=== PATIENT | male | born 1950 | race African-American/Black ===

== ENCOUNTER → 2017-02-27 | Outpatient (CLI) | payer OTHER ==
--- NOTE | ~2017-02-27 | 2DMMODE ---
[facility] [address] [place] [address] 2 D/M-MODE ECHOCARDIOGRAM Name: ESSIE DOWD Room #: REG [facility]#: [id number] Admission: 02/27/17 Attend Phys: Jaycob Dietrich Discharge: Date of : 50 Date of Service: 02/27/17 1518 Report #: [id number] THIS REPORT FOR: //name// APPROVED REPORT Study performed: 02/27/2017 13:57:07 EXAM: Comprehensive 2D, Doppler, and color-flow Echocardiogram Patient Location: Out-Patient Status: routine BSA: 98.87 HR: 61 bpm BP: 147/92 mmHg Other Information Study Quality: Good Indications Hypertension/HDD 2D Dimensions RVDd: 31.23 mm LVEF(%): 72.36 (>50%) IVSd: 12.59 (7-11mm) LVOT Diam: 19.51 (18-24mm) LVDd: 46.58 mm PWd: 11.04 (7-11mm) Ascending Ao: 33.02 (22-36mm) LVDs: 27.28 (25-40mm) Aortic Root: 33.08 mm IVC: 2.40 mm Ferrer's LVEF: 72.36 % Volumes Left Atrial Volume (Systole) Single Plane 4CH: 48.35 mL Single Plane 2CH: 43.16 mL LA ESV Index: 51.00 mL/m2 Aortic Valve AoV Peak Dameon.: 1.19 m/s AO Peak Gr.: 5.65 mmHg LVOT Max P.94 mmHg LVOT Max V: 0.86 m/s NELLIE Vmax: 2.16 cm2 Mitral Valve E/A Ratio: 0.9 MV Decel. Time: 242.96 ms MV E Max Dameon.: 0.77 m/s [facility] [email or web address] [address] 2 D/M-MODE ECHOCARDIOGRAM Name: ESSIE DOWD [facility]: [facility] [id number] Admission: 02/27/17 Attend Phys: Jaycob Dietrich Discharge: Date of : 50 Date of Service: 02/27/17 1518 Report #: [id number] MV A Dameon.: 0.85 m/s MV PHT: 70.46 ms IVRT: 92.27 ms Pulmonary Valve PV Peak Dameon.: 0.88 m/s PV Peak Gr.: 3.09 mmHg Pulmonary Vein P Vein S: 0.49 m/s P Vein A: 0.27 m/s P Vein D: 0.42 m/s P Vein A Dur.: 115.3 msec P Vein S/D Ratio: 1.17 Tricuspid Valve TR Peak Dameon.: 2.02 m/s RAP Estimate: 10.00 mmHg TR Peak Gr.: 16.28 mmHg PA Pressure: 26.00 mmHg Left Ventricle The left ventricle is normal size. Borderline concentric left ventricular hypertrophy. The left ventricular systolic function is normal. The left ventricular ejection fraction is within the normal range. LVEF is 60-65%. Grade I - abnormal relaxation pattern. Right Ventricle The right ventricle is normal size. The right ventricular systolic function is normal. Atria Left atrium is dilated. Hyperdynamic interatrial septem noted. The right atrium size is normal. Aortic Valve The aortic valve is normal in structure. No aortic regurgitation is present. There is no aortic valvular stenosis. Mitral Valve Mitral valve leaflets are thickened. There is no mitral valve regurgitation noted. No evidence of mitral valve stenosis. Tricuspid Valve The tricuspid valve is normal in structure. There is trace tricuspid regurgitation. The right atrial pressure is estimated at 10 mmHg. There is no pulmonary hypertension. Pulmonic Valve The pulmonary valve is normal in structure. [place] [address] 2 D/M-MODE ECHOCARDIOGRAM Name: ESSIE DOWD RANDACHRISS [facility] [id number] Admission: 02/27/17 Attend Phys: Jaycob Dietrich Discharge: Date of : 50 Date of Service: 02/27/17 1518 Report #: [id number] valvular regurgitation. Great Vessels The aortic root is normal in size. IVC is dilated and collapses >50% with inspiration. Pericardium There is no pericardial effusion. <Conclusion> The left ventricle is normal size. The left ventricular systolic function is normal. The right ventricle is normal size. Left atrium is dilated. The aortic valve is normal in structure. There is no mitral valve regurgitation noted. There is trace tricuspid regurgitation. The right atrial pressure is estimated at 10 mmHg. <ELECTRONICALLY SIGNED> By: Edward Lemons MD 02/27/17 1518 1518 1518 Edward Lemons MD /INF
== END ==
LOC: CV 12:11
DX: I10 Essential (primary) hypertension (principal)

== ENCOUNTER → 2019-06-21 | Outpatient (CLI) | payer OTHER | LOC: RAD 13:34 | DX: M25.511 Pain in right shoulder (principal) ==

== ENCOUNTER → 2019-09-21 | Outpatient (CLI) | payer OTHER | LOC: CAT 08:42 | DX: N64.89 Other specified disorders of breast (principal) ==

== ENCOUNTER → 2019-11-17 | Outpatient (CLI) | payer OTHER ==
[2019-11-17 14:05] LABS: ABSOLUTE NEUTROPHILS 4.7 thou/uL (1.4-8.2); BASOPHILS 0.5 % (0.0-2.0); EOSINOPHILS 2.8 % (0.0-3.0); HEMATOCRIT 39.1 % (42.0-52.0); MCH 28.6 pg (26.0-34.0); MCHC 33.3 g/dL (28.0-37.0); MCV 85.9 fL (80.0-100.0); MONOCYTES 7.2 % (1.0-8.0); POLYS 65.5 % (36.0-66.0); RBC 4.56 mil/uL (4.50-6.00); RDW 12.9 % (10.5-14.5); WBC 7.1 thou/uL (4.0-11.0)
[2019-11-17 14:25] LABS: URINE BILIRUBIN NEGATIVE (Negative); URINE BLOOD NEGATIVE (Negative); URINE CLARITY CLEAR; URINE COLOR YELLOW; URINE GLUCOSE-RANDOM* NEGATIVE (Negative); URINE KETONES NEGATIVE (Negative); URINE LEUKOCYTES-REFLEX NEGATIVE (Negative); URINE NITRITE-REFLEX NEGATIVE (Negative); URINE PROTEIN (DIPSTICK) NEGATIVE (Negative); URINE UROBILINOGEN 0.2 E.U./dl (0.2-1.0)
[2019-11-17 14:35] LABS: ALBUMIN 3.5 g/dL (3.4-5.0); ANION GAP 3 mmol/L (7-16); BUN 16 mg/dL (7-18); CALCIUM 8.8 mg/dL (8.5-10.1); CHLORIDE 103 mmol/L (98-107); CHOLESTEROL 125 mg/dL (<200); CO2 34 mmol/L (21-32); CREATININE 0.9 mg/dL (0.7-1.3); GLUCOSE 74 mg/dL (74-106); HDL CHOLESTEROL 60 mg/dL (>40); LDL CHOLESTEROL 57 mg/dL (<100); POTASSIUM 4.6 mmol/L (3.5-5.1); SGOT 16 U/L (15-37); SGPT 15 U/L (30-65); SODIUM 140 mmol/L (136-145); TC:HDL 2.1 Ratio (Not establshd); TOTAL BILIRUBIN 0.7 mg/dL (0.2-1.0); TOTAL PROTEIN 7.1 g/dL (6.4-8.2); TRIGLYCERIDE 42 mg/dL (<150); VLDL 8 mg/dL (<40)
[2019-11-17 14:47] LABS: PLATELET COUNT 148 thou/uL (150-400)
== END ==
LOC: LAB 10:03
PROVIDERS: Family Medicine
DX: Z00.00 Encounter for general adult medical examination without abnormal findings (principal); I10 Essential (primary) hypertension

== ENCOUNTER → 2019-12-02 | Outpatient (CLI) | payer OTHER | LOC: LAB 11:54 | PROVIDERS: ATTEND Family Medicine | DX: M10.072 Idiopathic gout, left ankle and foot (principal) ==

== ENCOUNTER → 2019-12-07 | Outpatient (CLI) | payer OTHER | LOC: MRI 07:08 | PROVIDERS: ATTEND Family Medicine | DX: M75.51 Bursitis of right shoulder (principal); G89.29 Other chronic pain; M89.8X1 Other specified disorders of bone, shoulder ==

== ENCOUNTER → 2020-11-21 | Outpatient (CLI) | payer OTHER ==
[2020-11-21 10:41] LABS: URINE BILIRUBIN NEGATIVE (Negative); URINE BLOOD NEGATIVE (Negative); URINE CLARITY CLEAR; URINE COLOR YELLOW; URINE GLUCOSE-RANDOM* NEGATIVE (Negative); URINE KETONES NEGATIVE (Negative); URINE LEUKOCYTES-REFLEX NEGATIVE (Negative); URINE NITRITE-REFLEX NEGATIVE (Negative); URINE PROTEIN (DIPSTICK) NEGATIVE (Negative); URINE UROBILINOGEN 0.2 E.U./dl (0.2-1.0)
[2020-11-21 10:42] LABS: ABSOLUTE NEUTROPHILS 3.5 thou/uL (1.4-8.2); BASOPHILS 1.1 % (0.0-2.0); EOSINOPHILS 2.6 % (0.0-3.0); HEMATOCRIT 41.3 % (42.0-52.0); HEMOGLOBIN 13.7 gm/dL (14.0-18.0); LYMPHOCYTES 29.7 % (24.0-44.0); MCH 27.4 pg (26.0-34.0); MCHC 33.3 g/dL (28.0-37.0); MCV 82.4 fL (80.0-100.0); MONOCYTES 6.8 % (1.0-8.0); PLATELET COUNT 163 thou/uL (150-400); POLYS 59.8 % (36.0-66.0); RBC 5.01 mil/uL (4.50-6.00); RDW 15.9 % (10.5-14.5); WBC 5.8 thou/uL (4.0-11.0)
[2020-11-21 11:02] LABS: ALBUMIN 3.5 g/dL (3.4-5.0); ANION GAP 3 mmol/L (7-16); BUN 16 mg/dL (7-18); CALCIUM 9.5 mg/dL (8.5-10.1); CHLORIDE 101 mmol/L (98-107); CHOLESTEROL 172 mg/dL (<200); CO2 34 mmol/L (21-32); GLUCOSE 89 mg/dL (74-106); HDL CHOLESTEROL 69 mg/dL (>40); LDL CHOLESTEROL 89 mg/dL (<100); POTASSIUM 4.9 mmol/L (3.5-5.1); SGOT 18 U/L (15-37); SGPT 21 U/L (30-65); SODIUM 138 mmol/L (136-145); TC:HDL 2.5 Ratio (Not establshd); TOTAL BILIRUBIN 0.5 mg/dL (0.2-1.0); TOTAL PROTEIN 8.6 g/dL (6.4-8.2); TRIGLYCERIDE 73 mg/dL (<150); VLDL 15 mg/dL (<40)
== END ==
LOC: LAB 08:51
PROVIDERS: ATTEND Family Medicine
DX: Z00.00 Encounter for general adult medical examination without abnormal findings (principal); E55.9 Vitamin D deficiency, unspecified; I10 Essential (primary) hypertension

== ENCOUNTER → 2021-02-14 | Outpatient (CLI) | payer OTHER ==
[2021-02-15 11:08] LABS: ANTI-DNA SCREEN 13 IU/mL (0-9); ANTI-RNP 0.7 AI (0.0-0.9)
== END ==
LOC: LAB 09:53
PROVIDERS: ATTEND Family Medicine
DX: M25.572 Pain in left ankle and joints of left foot (principal)